=== PATIENT | male | born 1990 | race Asian ===

== ENCOUNTER 2018-11-18 15:17 | Emergency (ER) | payer OTHER ==
[~2018-11-18] VITALS: Ht 172.7 cm; Wt 77.1 kg
[2018-11-18 15:55] LABS: PLATELET COUNT 232 K/uL (142-355)
[2018-11-18 16:04] LABS: POTASSIUM 4.1 mmol/L (3.6-5.2)
[2018-11-18 17:30] VITALS: BP 148/86; TEMP 98
== END 2018-11-18 17:30 | disposition home or self-care (01) ==
LOC: ED 15:17
DX: H60.02 Abscess of left external ear (principal)
CPT/HCPCS: 80053; 85027; 96372; 99283; J0696; J1885

== ENCOUNTER 2018-12-07 23:04 | Emergency (ER) | payer OTHER ==
[~2018-12-07] VITALS: Ht 172.7 cm; Wt 74.8 kg
[2018-12-08 00:29] LABS: PLATELET COUNT 221 K/uL (142-355)
[2018-12-08 00:33] LABS: POTASSIUM 4.5 mmol/L (3.6-5.2)
[2018-12-08 01:54] VITALS: BP 120/75; TEMP 97.9
== END 2018-12-08 01:54 | disposition home or self-care (01) ==
LOC: ED 23:04
PROVIDERS: Family Medicine
DX: N20.1 Calculus of ureter (principal); N28.89 Other specified disorders of kidney and ureter
CPT/HCPCS: 36415; 80053; 81000; 85027; 96360; 96375; 99284; J1885; J2405